=== PATIENT | male | born 1960 | race Caucasian/White ===

== ENCOUNTER 2018-11-02 13:03 | Observation (INO) | payer OTHER ==
[~2018-11-02] VITALS: Ht 175.3 cm; Wt 111.0 kg
[2018-11-02 13:52] LABS: HEMATOCRIT 44.4 % (39.0-50.0); IMMATURE GRANULOCYTES 0.2 % (0.0-5.0); MEAN CELL VOLUME 90.6 fL CALC (80.0-100.0); MEAN CORPUSCULAR HGB 30.6 pG CALC (26.0-32.0); MEAN CORPUSCULAR HGB CONC 33.8 g/L CALC (32.0-36.0); NEUT# 6.18 thou/uL (1.82-7.42); RED BLOOD COUNT 4.9 mill/uL (4.70-6.10); RED CELL DISTRI WIDTH 12.9 % (11.5-15.5)
[2018-11-02 14:06] LABS: ANION GAP 13 (6-22 (CALC)); BUN 16 mg/dL (9-20); BUN/CREATININE RATIO 15 (12-20 (CALC)); CARBON DIOXIDE 25 mmol/l (22-30); CHLORIDE 105 mmol/l (95-108); CREATININE 1.1 mg/dL (0.7-1.3); GFR > 60 ML/MIN (>=60 (CALC)); GFR FOR AFR.AMER. > 60 ML/MIN (>=60 (CALC)); POTASSIUM 4.3 mmol/l (3.5-5.1); SODIUM 139 mmol/l (137-146)
[2018-11-02] MEDS ORDERED: BUSPIRONE5 MG PO (14:19)
[2018-11-02] MEDS ORDERED: LEVOTHYROXIN50 MCG PO (14:19)
[2018-11-02] MEDS ORDERED: LIPITOR20 M1 PO (14:20)
[2018-11-02] MEDS ORDERED: LISINOPRIL10 MG PO (14:20)
[2018-11-02 16:46] VITALS: BP 139/90
[2018-11-02 19:33] VITALS: BP 126/74
[2018-11-03 00:28] VITALS: BP 100/58
[2018-11-03 05:14] VITALS: BP 135/82
[2018-11-03 06:20] LABS: HEMATOCRIT 44.1 % (39.0-50.0); HEMOGLOBIN 14.6 g/dl (14.0-18.0); IMMATURE GRANULOCYTES 0.3 % (0.0-5.0); MEAN CELL VOLUME 90.9 fL CALC (80.0-100.0); MEAN CORPUSCULAR HGB 30.1 pG CALC (26.0-32.0); MEAN CORPUSCULAR HGB CONC 33.1 g/L CALC (32.0-36.0); NEUT# 4.38 thou/uL (1.82-7.42); RED BLOOD COUNT 4.85 mill/uL (4.70-6.10); RED CELL DISTRI WIDTH 12.7 % (11.5-15.5)
[2018-11-03 06:35] LABS: ALBUMIN 3.5 g/dL (3.2-5.0); ALKALINE PHOSPHATASE 59 u/l (38-126); ANION GAP 12 (6-22 (CALC)); BILIRUBIN, TOTAL 0.6 mg/dL (0.0-1.4); BUN 18 mg/dL (9-20); BUN/CREATININE RATIO 16 (12-20 (CALC)); CARBON DIOXIDE 25 mmol/l (22-30); CHLORIDE 107 mmol/l (95-108); CREATININE 1.1 mg/dL (0.7-1.3); GFR > 60 ML/MIN (>=60 (CALC)); GFR FOR AFR.AMER. > 60 ML/MIN (>=60 (CALC)); MAGNESIUM 1.9 mg/dL (1.6-2.3); POTASSIUM 4.7 mmol/l (3.5-5.1); SGOT/AST 23 u/l (17-59); SODIUM 139 mmol/l (137-146); TOTAL PROTEIN 6.2 g/dL (6.3-8.2)
[2018-11-03 08:30] VITALS: BP 144/79
[2018-11-03 11:49] VITALS: BP 156/91
== END 2018-11-03 15:20 | disposition home or self-care (01) | DRG 313 ==
LOC: ED 13:03 → ED-I 15:07 → ED 15:17 → MS2 15:18
PROVIDERS: Family Medicine; ADMIT Internal Medicine Nephrology; ATTEND Internal Medicine Nephrology
DX: R07.89 Other chest pain (principal); I10 Essential (primary) hypertension; E78.5 Hyperlipidemia, unspecified; E03.9 Hypothyroidism, unspecified; F32.9 Major depressive disorder, single episode, unspecified; E66.9 Obesity, unspecified; Z68.36 Body mass index [BMI] 36.0-36.9, adult
CPT/HCPCS: G0378; J1650

== ENCOUNTER 2020-11-17 19:49 | Emergency (ER) | payer SELFPAY ==
[~2020-11-17] VITALS: Ht 175.3 cm; Wt 109.1 kg
[~2020-11-17 19:49] MED LIST: BUSPIRONE5 MG PO; LEVOTHYROXIN50 MCG PO; LIPITOR20 M1 PO; LISINOPRIL10 MG PO
[2020-11-17 20:16] LABS: HEMATOCRIT 41.7 % (39.0-50.0); HEMOGLOBIN 14.1 g/dl (14.0-18.0); IMMATURE GRANULOCYTES 0.4 % (0.0-5.0); MEAN CELL VOLUME 92.7 fL CALC (80.0-100.0); MEAN CORPUSCULAR HGB 31.3 pG CALC (26.0-32.0); MEAN CORPUSCULAR HGB CONC 33.8 g/dL CAL (32.0-36.0); NEUT# 4.45 thou/uL (1.82-7.42); RED BLOOD COUNT 4.5 mill/uL (4.70-6.10)
[2020-11-17 20:34] LABS: ALKALINE PHOSPHATASE 69 u/l (38-126); AMYLASE 59 u/l (30-110); ANION GAP 10 (6-22 (CALC)); BILIRUBIN, TOTAL 0.5 mg/dL (0.0-1.4); BUN 15 mg/dL (9-20); BUN/CREATININE RATIO 13 (12-20 (CALC)); CARBON DIOXIDE 27 mmol/l (22-30); CHLORIDE 104 mmol/l (95-108); CREATININE 1.2 mg/dL (0.7-1.3); GFR > 60 ML/MIN (>=60 (CALC)); GFR FOR AFR.AMER. > 60 ML/MIN (>=60 (CALC)); LIPASE 65 u/l (23-300); SGOT/AST 36 u/l (17-59); SODIUM 137 mmol/l (137-146)
[2020-11-17 20:36] LABS: PROTHROMBIN TIME 9.9 SECONDS (9.0-12.5)
[2020-11-17 20:43] LABS: D-DIMER 2.2 mg/L (0.19-0.60)
[2020-11-17 20:45] LABS: MYOGLOBIN 47 ng/mL (0 - 121)
[2020-11-17] MEDS ORDERED: LISINOPRIL20 MG PO (22:25)
[2020-11-17 22:51] VITALS: BP 150/86
== END 2020-11-17 22:51 | disposition home or self-care (01) | DRG 305 ==
LOC: ED 19:49
PROVIDERS: Family Medicine
DX: I10 Essential (primary) hypertension (principal); E78.5 Hyperlipidemia, unspecified; E03.9 Hypothyroidism, unspecified; Z20.822 Contact with and (suspected) exposure to COVID-19
CPT/HCPCS: Q9967